=== PATIENT | female | born 1975 | race Hispanic/Latino ===

== ENCOUNTER 2021-09-01 17:18 | Emergency (ER) | payer SELFPAY ==
[2021-09-01 17:30] VITALS: BP 136/70; PULSE 63; RESP 16; TEMP 37.2; O2SAT 99
--- NOTE | 2021-09-01 17:38 | ED.GENADULT ---
HPI - General Adult General Chief complaint: Unspecified Stated complaint: left side body pain Time Seen by Provider: 09/01/21 17:38 Source: patient, RN notes reviewed and old records reviewed History of Present Illness HPI narrative: 46-year-old female presents to the [facility] with left scapular pain. Pain started on , 5 days ago. Has taken naproxen. Pain is worse with movement. Denies chest pain, nausea, vomiting or diarrhea. Denies abdominal pain. No midline tenderness. No numbness or tingling in extremities. Positive radial pulse. Offered service order clerk, patient declined wanted her friend to translate. Related Data Allergies Allergy/AdvReac Type Severity Reaction Status Date / Time No Known Allergies Allergy Verified 09/01/21 17:31 Review of Systems Review of Systems: All systems reviewed & are unremarkable except as noted in HPI and below Constitutional: Constitutional: Reports no additional constitutional complaints Eyes: Eyes: Reports no additional eye complaints ENT: Reports system reviewed and no additional complaints, except as documented Cardiovascular: Cardiovascular: Reports no additional cardiovascular complaints Respiratory: Respiratory: Reports no additional respiratory complaints Gastrointestinal: Gastrointestinal: Reports no additional gastrointestinal complaints Musculoskeletal: Musculoskeletal: Reports as per HPI Comments: Left scapular pain Integumentary/Breasts: Skin/Breast: Reports system reviewed and no additional complaints, except as docu Neurologic: Reports system reviewed and no additional complaints, except as documented Psychiatric: Psychiatric: Reports no additional psychiatric complaints Allergic/Immunologic: Allergic/Immunologic: Reports no additional allergic/immunologic complaints [facility] Past Medical History Medical History (Updated 09/02/21 @ 00:00 by Marisabel Loomis) High cholesterol Surgical History Surgical History (Updated 09/01/21 @ 17:45 by Neeta Cai) No pertinent past surgical history Social History Social History (Updated 09/01/21 @ 17:45 by Neeta Cai) Smoking status: Never smoker Living arrangements: with family Gender identity (if verbalized by the patient): Female Comments At the time of my signature, I reviewed and agree with the nursing past medical, surgical, social, and family history. There is no relevant family history pertinent to the patient complaint. Exam Const: General: cooperative, healthy appearing, no acute distress, well developed, alert and awake Nutritional Appearance: average body habitus Orientation/consciousness: patient oriented x3 Limitations: no limitations HENMT: Head: normal to inspection Ears: hearing grossly normal bilaterally Face and sinus: normal facial exam Throat: posterior oropharynx normal Eyes: General: appearance normal, both eyes and all related structures Neck: Neck: normal visual inspection, full ROM, no lymphadenopathy and no meningeal signs Chest: Chest palpation & inspection: normal inspection of the chest Resp: Effort & Inspection: normal respiratory effort and grunting Auscultation: clear to auscultation bilaterally Cardio: Rate: regular rate Rhythm: regular rhythm Back/Spine/Pelvis: Back: no CVA tenderness Cervical Spine: normal cervical lordosis Thoracic/Lumbar Spine: thoracic and lumbar spine normal to inspection Other: Left scapular tenderness with movement. Muscle spasm noted to the medial aspect. Able to shrug shoulders. Full range of motion of the shoulders, elbows and wrists. Denies chest pain or shortness of breath Skin: General skin exam: normal color and no rashes or lesions noted Neuro: General: patient oriented x3 and gait normal Extrem: General: normal to inspection and full ROM Shoulder/upper arm images: 1. Tenderness with movement, has full range of motion. Muscle spasm noted on palpation and with movement. No midline tender
== END 2021-09-01 17:56 | disposition home or self-care (01) ==
PROVIDERS: Emergency Provider Nurse Practitioner
DX: M54.6 Pain in thoracic spine (principal); E78.00 Pure hypercholesterolemia, unspecified
CPT/HCPCS: 99203; G0463